=== PATIENT | female | born 1950 | race Caucasian/White ===

== ENCOUNTER 2016-12-10 14:51 | Emergency (ER) | payer MEDICARE, OTHER ==
[~2016-12-10] VITALS: Ht 162.6 cm; Wt 84.1 kg
[2016-12-10 14:58] VITALS: BP 144/79; PULSE 94; RESP 20; O2SAT 97
--- NOTE | 2016-12-10 15:19 | ED.REPORT ---
HPI-General Illness Date of Service Dec 10, 2016 ED Provider: Dr. Wild 66 y/o female with a hx of HTN presents to the ED complaining of a mass on the right side of her neck which has been gradually growing, onset yesterday. Associated sx include jaw pain, cough, postnasal drip and fever. She denies dysphagia and gum pain. The pt states she was in [place] 3 days ago when she experienced nasal congestion, weakness, rhinorrhea and fever. Nursing Notes Stated Complaint: LUMP ON RIGHT JAW, FEVER,CONGESTION/RESIDENCY SENT Chief Complaint: Respiratory Complaints Nursing Notes Reviewed: Yes Allergies: Coded Allergies: Opioids - Morphine Analogues (Verified Allergy, Mild, 12/10/16) Sulfa (Sulfonamide Antibiotics) (Verified Allergy, Mild, 12/10/16) cheese (Verified Allergy, Mild, 12/10/16) Scheduled Amoxicillin/Clav K 875-125 mg (Augmentin 875-125 mg) 1 Each Tablet 1 TABLET PO BID General Time Seen by MD: 15:19 Chief Complaint Other (mass on right side of the neck) Hx Obtained From: Patient Arrived By: Walk-in Sudden in Onset?: Yes Onset Occurred: Yesterday Symptom Duration: Since onset Location: : Head (Right jaw): Neck Radiation: : Does not radiate Severity: Current: Moderate Severity: Maximum: Moderate Recent Healthcare: No recent doctor visit Similar Sx Previous: No Past Medical History Past Medical History Reports: Hypertension Past Surgical History 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 Physical Exam Vital Signs Vital Signs Date Time Temp Pulse Resp B/P Pulse Ox O2 Delivery O2 Flow Rate FiO2 12/10/16 18:11 37.5 84 15 120/45 98 Room Air 12/10/16 14:58 38.8 94 20 144/79 97 Room Air Initial VS: Reviewed Head / Eyes: Atraumatic, Normocephalic ENT: Mucous membranes moist, Conjunctiva normal, No scleral icterus Neck: Full range of motion Respiratory: Breath sounds normal, Clear to auscultation, No respiratory distress Cardiovascular: Regular rate & rhythm, Heart sounds normal, Intact distal pulses Abdomen / GI: Soft, Non-tender Extremities: Vascular intact, Neuro intact, No swelling, No tenderness Neurologic: Alert, Oriented, Nonfocal General/Constitutional: Awake, Alert, Cooperative Febrile Skin: Color NL, Warm, Dry, Intact 5 cm mass with warmth and enduration Interpretation & Diagnostics PROCEDURE: CT NECK SOFT TISSUES WITH CONTRAST [id number] IMPRESSION: 1. Large right submandibular gland which could be inflammatory but remains nonspecific, especially in apparent absence of a normal left submandibular gland , correlation with clinical history recommended. 2. Numerous cervical lymph nodes are present bilaterally, all subcentimeter in short diameter but possibly reactive. Dictated by: Ronal Rankin M.D. on 12/10/2016 at 17:00 Approved by: Ronal Rankin M.D. on 12/10/2016 at 17:10 Lab Results Interpretation Result Diagram: 12/10/16 1535 12/10/16 1535 Test 12/10/16 15:35 White Blood Count 4.5th/mm3 (3.8-10.1) Red Blood Count 3.78mil/mm3 (3.90-5.20) Hemoglobin 10.3g/dL (12.0-15.6) Hematocrit 33.1% (35.0-46.0) Mean Corpuscular Volume 87.6fL (81-100) Mean Corpuscular Hemoglobin 27.2pg (27.0-35.0) Mean Corpuscular Hemoglobin Concent 31.1% (32.0-37.0) Red Cell Distribution Width 15.0% (12.3-15.4) Platelet Count 162bil/L (150-400) Neutrophils (%) (Auto) 64.6% (40-74) Lymphocytes (%) (Auto) 18.9% (14-46) Monocytes (%) (Auto) 13.9% (4-12) Eosinophils (%) (Auto) 2.0% (0-5) Basophils (%) (Auto) 0.2% (0-3) Sodium Level 138mEq/L (134-144) Potassium Level 4.1mEq/L (3.5-5.2) Chloride Level 100mEq/L (97-108) Carbon Dioxide Level 24mmol/L (18-29) Blood Urea Nitrogen 9mg/dL (8-27) Creatinine 0.64mg/dL (0.57-1.00) Estimat Glomerular Filtration Rate 133mL/min (>59) Glucose Level 97mg/dL (60-99) Lactic Acid Level 0.8mmol/L (0.4-2.0) Calcium Level 8.7mg/dL (8.5-10.1) Magnesium Level 1.9mg/dL (1.6-2.6) Total Bilirubin 0.4mg/dL (0.0-1.2) Aspartate Amino Transf (AST/SGOT) 40U/L (0-50) Alanine Aminotransferase (ALT/SGPT) 27U/L (0-32) Alkaline Phosphatase 81U/L (25-165) Total Protein 7.0g/dL (6.4-8.4) Albumin 3.8g/dL (3.4-5.0) X-Ray Chest Interpretation Chest Xray Interpretation: IMPRESSION: No acute cardiopulmonary abnormality. Dictated by: Ronal Rankin M.D. on 12/10/2016 at 16:08 Approved by: Ronal Rankin M.D. on 12/10/2016 at 16:09 View: Portable, 1 view Interpretation / Wet Read by: Interpret - Radiologist Re-Eval/Medical Decision Med Decision/Clinical Course Submandibular swelling and erythema, no obvious abscess on CAT scan. Although less likely mumps testing was sent off. Will be discharged on Augmentin. Discussed with ENT who will follow closely in clinic. Return and follow-up precautions given Time of Eval: 17:26 Re-Evaluation/Progress Note: Rechecked pt. Discussed lab, imaging results and diagnosis. Informed the pt of the plan to discharge. Pt understands and agrees with plan. F/U instructions and RTER warning given. All questions addressed. Consultation : Referral / Consult Name: Charles Thomas MD Consulted With: ENT Call Returned at: 17:22 Product Development Actuary: Will see in office, Agrees with eval, Agrees with plan Counseled Regarding: Diagnosis, Lab results, Need for follow-up, When/why to return to ED Discharge & Departure Primary Impression: Submandibular swelling Disposition: Home Discharge Condition All VS Reviewed: Yes Condition: Stable Additional Instructions: Your submandibular gland is swollen. This could be viral or bacterial. It seems unlikely that this is mumps however we have sent off the lab tests for this. Take Augmentin as prescribed. Use ibuprofen as needed. Follow-up with the nuclear medicine supervisor in the next 2 days. Return to the ER for severe pain, difficulty swallowing or breathing, lethargy, profound weakness, or other concerns. Referrals: [facility] Scribe Attestation Portions of this note were transcribed by Elroy Rogers. I, , personally performed the history, physical exam and medical decision-making;I reviewed and confirmed the accuracy of the information in the transcribed note. Signed by Larissa Sullivan. 12/10/16 18:04 copies to: [facility] Dominic Wild DO Dec 10, 2016 15:19 Elroy Rogers Dec 10, 2016 16:12
[2016-12-10] MEDS ORDERED: 0.9% Sodium Chloride 1,000 ML IV ONE (15:28)
[2016-12-10] MEDS ORDERED: Ketorolac 15 mg/mL Inj IVPUSH ONE (15:30)
[2016-12-10 15:55] LABS: BASOPHILS % (AUTO) 0.2 % (0-3); MONOCYTES % (AUTO) 13.9 % (4-12); Mean Corpuscular Hemoglobin 27.2 pg (27.0-35.0); Mean Corpuscular Volume 87.6 fL (81-100); NEUTROPHILS % (AUTO) 64.6 % (40-74); Platelet Count 162 bil/L (150-400)
--- NOTE | 2016-12-10 16:11 | DRSVH ---
PROCEDURE: X-RAY CHEST ONE VIEW, PORTABLE ([id number]) INDICATIONS: fever, cough TECHNIQUE: One view of the chest was acquired. COMPARISON: None. FINDINGS: Surgical changes and devices: None. Lungs and pleura: No pleural effusions or pneumothorax. Lungs are clear. Mediastinum: Mediastinal contours appear normal. Heart size is normal. Aortic calcifications. Bones and chest wall: No suspicious bony lesions. Overlying soft tissues appear unremarkable. IMPRESSION: No acute cardiopulmonary abnormality. Dictated by: Ronal Rankin M.D. on 12/10/2016 at 16:08 Approved by: Ronal Rankin M.D. on 12/10/2016 at 16:09
[2016-12-10 16:15] LABS: Magnesium 1.9 mg/dL (1.6-2.6)
--- NOTE | 2016-12-10 17:12 | DRSVH ---
PROCEDURE: CT NECK SOFT TISSUES WITH CONTRAST ([id number]) INDICATIONS: right neck mass, fever TECHNIQUE: After the administration of intravenous contrast, 3.0 mm axial sections acquired from the sella to th e aortic arch. Additional oblique axial 3.0 mm sections acquired through the pharynx. 3 mm thick co fco reformats were generated. For radiation dose reduction, the following was used: automated exp osure control. COMPARISON: None. FINDINGS: Image quality: Excellent. Lymph nodes: No enlarged lymph nodes seen throughout the neck however there are numerous cervical no joel that are subcentimeter in size that may be reactive. Vessels: Visualized vasculature appears patent. Neck spaces: The oropharynx, nasopharynx, and pharynx demonstrate no mucosal lesions. The vocal cor ds, false vocal cords, pyriform sinuses, epiglottis, vallecula, and tongue base all appear normal. E xtramucosal spaces appear unremarkable. Glands: The parotid glands appear normal. Thyroid gland contains small hypodense nodules. Correspon ding to a skin marker in the right upper cervical region is a large glandular mass measuring 3.1 x 3. 3 cm in diameter by 4.3 cm craniocaudal this appears to represent an enlarged right submandibular gla nd . There is no normal appearing left submandibular gland identified, possibly vertically excised or developmentally atretic. In the left submandibular space is a rounded 9 mm nodule which may represen t lymph node. Miscellaneous: Visualized brain and orbits appear normal. Lung apices appear clear. Superficial so ft tissues appear normal. Bones: No suspicious bony lesions. Visualized sinuses and mastoids appear unremarkable. . IMPRESSION: 1. Large right submandibular gland which could be inflammatory but remains nonspecific, especially in apparent absence of a normal left submandibular gland, correlation with clinical history recommended . 2. Numerous cervical lymph nodes are present bilaterally, all subcentimeter in short diameter but pos sibly reactive. Dictated by: Ronal Rankin M.D. on 12/10/2016 at 17:00 Approved by: Ronal Rankin M.D. on 12/10/2016 at 17:10
[2016-12-10] MEDS ORDERED: Amoxicillin-Clav 875-125 mg Tablet PO ONE (17:30)
[2016-12-10] MEDS ORDERED: AMOX-366 PO (17:39)
[2016-12-10 18:11] VITALS: BP 120/45; PULSE 84; RESP 15; O2SAT 98
== END 2016-12-10 18:05 | disposition home or self-care (01) ==
LOC: SED 14:51
DX: R22.0 Localized swelling, mass and lump, head (principal); R68.84 Jaw pain; R05 Cough; R09.82 Postnasal drip; R50.9 Fever, unspecified; I10 Essential (primary) hypertension; Z88.2 Allergy status to sulfonamides; Z88.5 Allergy status to narcotic agent; Z91.011 Allergy to milk products
CPT/HCPCS: 36415; 70491; 71010; 80053; 83605; 83735; 85025; 87040; 96361; 96374; 99285; G0463; J1885; J7030; Q9967